=== PATIENT | male | born 1980 | race Caucasian/White ===

== ENCOUNTER 2017-01-09 16:49 | Emergency (ER) | payer SELFPAY ==
[~2017-01-09] VITALS: Ht 175.3 cm; Wt 77.1 kg
--- NOTE | 2017-01-09 16:49 | NUR ---
PATIENT BIB [facility] FOR PRE-BOOK CLEARANCE . PT STATES HE IS UNSURE HOW HE HURT HIS ARM, AND UNABLE TO GIVE LENGTH OF TIME HIS ARM HAS BEEN HURTING . DENIES N/V/D; SKIN IS PINK/WARM/DRY; AAOX4 WITH EVEN AND STEADY GAIT; LUNGS CLEAR BL; HR EVEN AND REGULAR; PT DENIES ANY FEVER, CP, SOB, OR COUGH AT THIS TIME; PATIENT STATES PAIN OF 7/10 AT THIS TIME; VSS; PATIENT POSITIONED IN CHAIR, [facility] CHAIRSIDE. ER MADE AWARE OF PT STATUS.
[2017-01-09 16:56] VITALS: BP 144/88
--- NOTE | 2017-01-09 17:30 | NUR ---
Landen AYON PTKim
--- NOTE | 2017-01-09 17:37 | NUR ---
Patient discharged with v/s stable. Written and verbal after care instructions given and explained. Patient verbalized understanding. Police with in custody. All questions addressed prior to discharge. Advised to follow up with PMD.
[2017-01-09 17:46] VITALS: BP 144/88
== END 2017-01-09 17:37 ==
LOC: MED 16:49
DX: Z02.89 Encounter for other administrative examinations (principal); V49.49XA Driver injured in collision with other motor vehicles in traffic accident, initial encounter; Y93.89 Activity, other specified; Y92.488 Other paved roadways as the place of occurrence of the external cause; Y99.8 Other external cause status
CPT/HCPCS: 99283